=== PATIENT | female | born 1945 | race Caucasian/White ===

== ENCOUNTER 2023-12-19 12:24 | Outpatient (CLI) | payer MEDICARE, SELFPAY ==
[2023-12-19 13:26] LABS: Anion Gap 5 mmol/L (8-16); Blood Urea Nitrogen 18 mg/dL (7-17); Carbon Dioxide 29 mmol/L (22-30); Chloride 105 mmol/L (98-107); Estimated Glomerular Filt Rate > 60; Glucose 204 mg/dL (65-110); Potassium 3.8 mmol/L (3.4-5.0); Sodium 139 mmol/L (137-145)
== END 2023-12-19 12:25 | disposition home or self-care (01) ==
LOC: ANHSURGERY 12:35
PROVIDERS: Anesthesiology; PCP Internal Medicine; Visit Provider Urology
DX: E11.9 Type 2 diabetes mellitus without complications (principal); Z01.818 Encounter for other preprocedural examination
CPT/HCPCS: 36415; 80048

== ENCOUNTER 2023-12-22 00:36 | Day surgery (SDC) | payer MEDICARE, SELFPAY ==
--- NOTE | 2023-12-17 17:18 | PM.IMHP ---
H&P: HPI History of Present Illness Date/Time: 12/17/23 17:18 Chief Complaint: Urge incontinence Narrative: urge incontinence. InterStim in 2011. battery change in 2018. battery again ending service. Once a full revision to be MRI compatible Review of Systems Review of Systems: All systems reviewed & are unremarkable except as noted in HPI and below PMFSH Past Medical History Medical History Cataract fragments in both eyes following surgery Diabetes Hyperthyroidism Hypothyroidism Pancreas cancer Ulcers, marginal Surgical History Surgical History H/O: hysterectomy History of bladder surgery History of orthopedic surgery History of thyroid surgery Family History Family History Other Breast cancer Cancer Cerebrovascular accident Diabetes mellitus Heart disease Social History Social History Smoking status: Never smoker Alcohol intake: never Substance use: never Substance use type: does not use Lack of Transportation: No Lack of Food: Never True Current Housing: I Have Housing Concerned About Future Housing: Decline to Answer Difficulty Paying Gas/Electric Bills: Decline to Answer Difficulty Paying for Meds: Decline to Answer Currently Unemployed: Decline to Answer Education: High School Diploma/GED Living arrangements: alone Occupation/Education: retired Gender identity (if verbalized by the patient): Female Sexual Orientation (if Verbalized by the Patient): Straight or Heterosexual Meds Home Medications and Allergies Home Medications Medication Instructions Recorded Confirmed Type bisoprolol fumarate 5 mg tablet 2.5 mg PO DAILY 04/26/23 History clobetasol 0.05 % topical cream 1 applic topical DAILY PRN vulvar 04/26/23 04/26/23 Rx itching #60 grams hylan g-f 20 48 mg/6 mL 16 mg intra-articular ONCE 04/26/23 History intra-articular syringe (Synvisc-One) levothyroxine 112 mcg/mL oral 112 mcg PO DAILY 04/26/23 History solution metformin 500 mg tablet 500 mg PO DAILY 04/26/23 History mirabegron 50 mg tablet,extended 50 mg PO DAILY 04/26/23 History release 24 hr (Myrbetriq) simvastatin 10 mg tablet 10 mg PO DAILY 04/26/23 History Allergies Allergy/AdvReac Type Severity Reaction Status Date / Time No Known Allergies Allergy Verified 04/26/23 10:27 Exam Narrative: no acute distress normal breathing alert and oriented x3 Assessment and Plan Assessment and plan (1) Urge incontinence: Code(s): N39.41 - Urge incontinence Status: Acute Assessment and Plan: remove and replace InterStim system. Understands risks of bleeding, infection, incomplete efficacy, wound complications, incomplete device removal. Agrees to proceed
--- NOTE | 2023-12-18 12:41 | PC.NURSE ---
Report to the Outpatient Waiting Room, entrance under the green pavilion located off [facility], at time _0600 on date _12/22/23 . Planned Procedure Time: __0730 . Time changes happen often and if your time is changed the preop area will call you the afternoon before. - You and your visitor will be asked to self-screen and do not enter if you have any COVID symptoms. - A mask is optional within the hospital at this time. Patients may have clear liquids (water, carbonated beverages, clear teas, apple juice) until 3 hours prior to surgery( 4:30 AM ) with a maximum of 20 ounces. - No food from midnight until time of surgery - Infants may have breast milk until 4 hours before surgery, formula 6 hours prior to surgery. - Children will be allowed to drink immediately following surgery. If applicable, please bring a bottle or sippy cup to assist with drinking. Juice, water, soda, and popsicles are readily available. For infants on formula, please bring formula the day of surgery. Pacifiers are allowed. Take the following medications with a SIP of water the morning of surgery: _LEVOTHYROXINE,BISOPROLOL DO NOT STOP ANY OF YOUR OTHER PRESCRIPTION MEDICATIONS PRIOR TO SURGERY ?EXCEPT THE FOLLOWING Medications to discontinue per physician __ALL VITAMINS AND SUPPLEMENTS 3 DAYS PRE OP .LAST DOSE 12/18/23____PT STATES HOLD JARDIANCE 72 HOURS PRIOR TO SURGERY PER DR RODRIGUEZ. LAST DOSE 12/18/23 Please no make-up, nail bruneian, hairspray, perfume, deodorant, or body powder the day of surgery. No jewelry (including any body piercings) or valuables the day of surgery, leave them at home. Please take a shower or bath the night before, or the morning of, surgery with an antibacterial soap. Wear comfortable, loose fitting clothing. Children are encouraged to wear pajamas. - Jewelry must be removed prior to entering the operating room. Rings and piercings that are not removed may be cut off. - The hospital will not accept responsibility for valuables. - Please leave all valuables, including medications, at home the day of surgery. If you are going home after surgery, a licensed shuttle driver must drive you home. - NO public transportation without another adult if you receive anesthesia. - We recommend that an adult stay with you for 24 hours following discharge. - We also recommend that you do not drive, make important decision, drink alcoholic beverages, or take any drugs that were not prescribed by your health care provider for at least 24 hours after your discharge time. Follow any additional instructions given to you from your surgeon. If you or anyone in your household have experienced Covid symptoms in the past week, please notify your surgeon or the nurse liaison at the phone number below for possible testing. Telephone instructions given to __PATIENT and asked if any additional questions and then verbalized understanding. Patient advised to call surgeon office or pre surgery nurse liaison [phone] if any additional questions.
[2023-12-18 12:53] VITALS: BMI 25.2
--- NOTE | 2023-12-21 12:47 | WPDANESEPPF ---
Anes - Initial Pre Proc Eval Procedure: Operation Date: 12/22/23 07:30 Proposed Procedures p Removal and Insertion of Neurostimulator Implant - Charly Pruitt MD Date/Time: 12/21/23 12:47 Surgeon: Charly Pruitt MD Pre Op Diagnosis: stress incontinence Patient Data Age: 78 Gender: F Height: 1.59 m Weight: 63.5 kg Allergies Allergy/AdvReac Type Severity Reaction Status Date / Time No Known Allergies Allergy Verified 12/22/23 06:14 Home Medications Medication Instructions Recorded Confirmed Type bisoprolol fumarate 5 mg tablet 2.5 mg PO BID 04/26/23 12/18/23 History clobetasol 0.05 % topical cream 1 applic topical DAILY PRN vulvar 04/26/23 12/18/23 Rx itching #60 grams metformin 500 mg tablet 500 mg PO BID 04/26/23 12/18/23 History mirabegron 50 mg tablet,extended 50 mg PO DAILY 04/26/23 12/18/23 History release 24 hr (Myrbetriq) calcium carbonate 600 mg-vitamin 1 tablet PO DAILY 12/18/23 12/18/23 History D3 20 mcg (800 unit) chewable tablet (Caltrate 600 plus D) cholecalciferol (vitamin D3) 25 25 mcg PO DAILY 12/18/23 12/18/23 History mcg (1,000 unit) tablet empagliflozin 10 mg tablet 10 mg PO DAILY 12/18/23 12/18/23 History (Jardiance) levothyroxine 112 mcg tablet 112 mcg PO DAILY 12/18/23 12/18/23 History omega-3 fatty acids 1,000 mg PO DAILY 12/18/23 12/18/23 History omeprazole 20 mg capsule,delayed 20 mg PO DAILY 12/18/23 12/18/23 History release simvastatin 20 mg tablet 20 mg PO DAILY 12/18/23 12/18/23 History Patient hx anesthesia problems: none Family hx anesthesia problems: none Results Review: All pre-operative results and documents have been reviewed as part of the pre-operative evaluation. [facility] Past Medical History Medical History (Updated 12/21/23 @ 12:48 by Imtiaz Strong DO) Cataract fragments in both eyes following surgery Diabetes Hyperlipidemia Hypertension Hypothyroidism Pacemaker Pancreas cancer Ulcers, marginal Surgical History Surgical History H/O: hysterectomy History of bladder surgery History of orthopedic surgery History of thyroid surgery Family History Family History Other Breast cancer Cancer Cerebrovascular accident Diabetes mellitus Heart disease Social History Social History Smoking packs per day: 1 Smoking cigarettes per day: 20.0 Years smoked: 15 Smoking pack-years: 15.00 Smoking status: Former smoker Tobacco type: cigarettes Smoking end date: 10/16/94 Alcohol intake: current Drinks per week: 1 Substance use: never Substance use type: does not use Lack of Transportation: No Lack of Food: Never True Current Housing: I Have Housing Concerned About Future Housing: Decline to Answer Difficulty Paying Gas/Electric Bills: Decline to Answer Difficulty Paying for Meds: Decline to Answer Currently Unemployed: Decline to Answer Education: High School Diploma/GED Living arrangements: alone Occupation/Education: retired Gender identity (if verbalized by the patient): Female Sexual Orientation (if Verbalized by the Patient): Straight or Heterosexual Spiritual care concerns: No Anes - Eval Final PreProcedure Day of Procedure 12/21/23 12:47 Patient weight: overweight Heart: regular rate and rhythm Lungs: clear to auscultation Airway: Mallampati scale class II Neurological: alert and oriented Last oral intake: >/= 8 hours ASA classification: III Emergent: no Anesthetic plan: proceed Anesthesia type and monitoring: general GIVS and standard monitoring Results Review: All pre-operative results and documents have been reviewed as part of the pre-operative evaluation. Informed Consent: The patient's anesthetic plan and its attendant risks and benefits were discussed with the patient/
--- NOTE | ~2023-12-22 | XR_ITS ---
EXAMINATION: XR fluoroscopy no charge DATE: 12/22/2023 08:17 INDICATION: Neural stimulator removal and insertion TECHNIQUE: 3 fluoroscopic images of the pelvis were obtained during procedure performed by Dr. Freddy loaz. Radiologist was not present for the imaging or procedure. The amount of fluoroscopy time used duri ng this procedure was 1.8 minutes. COMPARISON: None FINDINGS: Lard Tub Washer image demonstrates the tip of a hemostat likely for marking projecting over a left-sided neuros timulator lead projecting over expected location of the mid left sacrum. Subsequent image demonstrate s a new InterStim lead with a lead which extends across the left S3 neural foramen. Lap sponge marker s project over the more caudal sacrum on the lateral image. IMPRESSION: 1. Fluoroscopy utilized during sacral nerve root stimulator lead replacement which is in expected pos ition projecting over the left S3 neural foramen on the final images. See procedure note for further detail. Reviewed, dictated and finalized at location A. ASSEMBLER IMPRESSION: 1. Fluoroscopy utilized during sacral nerve root stimulator lead replacement wh ich is in expected position projecting over the left S3 neural foramen on the f inal images. See procedure note for further detail.
--- NOTE | 2023-12-22 04:33 | WPDHPUPDATE1 ---
History and Physical Update Update Date/Time: 12/22/23 04:33 History and Physical has been reviewed, including an updated exam of the patient. There are NO changes in the patient's condition. Risks, benefits, and alternatives have been discussed and questions answered. Patient agrees to proceed with procedure.
[2023-12-22 06:20] LABS: Glucose Point of Care 128 mg/dl (65-105)
[2023-12-22 07:03] VITALS: BP 145/76; PULSE 85; RESP 16; TEMP 36.4; O2SAT 100
[2023-12-22 07:10] VITALS: BMI 23.8
[2023-12-22] MEDS: LACTATED RINGERS 1,000 ML 30 ML IV CONT (07:10)
[2023-12-22] MEDS: ceFAZolin 2 GM/D5W 50 ML 2 GM/50 ML BAG IVPB ×2 (07:36→07:48)
[2023-12-22] MEDS: BUPIVACAINE/EPINEPHRINE 0.5% 30 ML VIAL INFILTRATE (07:49)
[2023-12-22] MEDS: ceFAZolin SODIUM 1 GM VIAL (07:50)
--- NOTE | 2023-12-22 08:19 | P.OP_ITS ---
Procedure Note - Detailed Date of Procedure 12/22/23 Pre-op Diagnosis Sensory urge incontinence Post-op Diagnosis Same Procedure Performed Removal of sacral lead 16062 implantation of sacral lead 58300 Re-Placement of implantable pulse generator 06350 Complex neurostimulator programming impedance check 83714 Surgeon Charly Pruitt MD Coil Connector None Anesthesia MAC and Local Indications This is a patient with refractory urge urinary incontinence. She has InterStim device in place. The batteries been changed on 2 occasion. She is now in the service. She would like a full revision so she could be MRI compatible Findings See dictated Description of Procedure They were correctly identified and informed consent was obtained. There brought to the operating room. There placed in the prone position. There given appropriate perioperative antibiotics. A time-out performed. I anesthetized the skin over the pulse generator. I incised the skin. I located the pulse generator and explanted it. I then located by previously placed sacral lead under fluoroscopy. I anesthetized the skin. I dissected down to locate the lead. I removed in its entirety. I used fluoroscopy to efren out my sacral landmarks in the AP and the lateral orientation. I anesthetized the skin. I entered the S3 foramen. I monitored the needle with fluoroscopy. I entered the S3 foramen on both the patient's right and left. The old lead was on the left. I entered the right S3 foramen. 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 I could not get good responses. I then entered the S3 foramen. I stimulated the needle needle. I got appropriate Julian and toe response at a low threshold. I made a skin austin. I placed a stylet. I placed the lead introducer sheath. I then placed and d eployed to my lead. All this was done percutaneously with x-ray guidance. I got appropriate responses again at a low threshold. I did a skipping incision to take it excess lead. I tunneled the lead towards this pocket. Appropriate connections were made between the lead and the battery. It was placed in the pocket. It was programmed and impedances were checked and found to be normal. I irrigated out all wounds. I ensured hemostasis. I closed the subcutaneous tissues with 2 Vicryl. I closed the skin with 4 0 Vicryl. Glue was applied. There then awakened and transferred to the PACU in stable condition. Implants Sacral neurostimulator Estimated Blood Loss 5 Drains No Packing No Pathology None sent Condition Stable Disposition PACU
[2023-12-22 08:22] VITALS: BP 119/53; PULSE 93; RESP 14; O2SAT 97
[2023-12-22 08:29] LABS: Glucose Point of Care 161 mg/dl (65-105)
[2023-12-22 08:50] VITALS: BP 121/55; PULSE 78; RESP 16
[2023-12-22 09:20] VITALS: BP 115/52; PULSE 82; RESP 16
== END 2023-12-22 09:20 | disposition home or self-care (01) ==
PROVIDERS: PCP Internal Medicine; Visit Provider Urology
PROC: (CPT 64590; principal; 2023-12-22 07:30)
DX: Z45.42 Encounter for adjustment and management of neurostimulator (principal); N39.41 Urge incontinence; E11.9 Type 2 diabetes mellitus without complications; E78.5 Hyperlipidemia, unspecified; I10 Essential (primary) hypertension; E03.9 Hypothyroidism, unspecified; Z95.0 Presence of cardiac pacemaker; Z85.07 Personal history of malignant neoplasm of pancreas; Z79.84 Long term (current) use of oral hypoglycemic drugs; Z87.891 Personal history of nicotine dependence
CPT/HCPCS: 64590; 64561; 36415; 80048; 82948; 99199; C1767; C1778; C1787; J0690; J1885; J2250; J2405; J2704; J3010; J7120

== ENCOUNTER 2025-04-11 00:34 | Day surgery (SDC) | payer MEDICARE, SELFPAY ==
[2025-04-01 13:31] VITALS: BMI 25.6
--- NOTE | 2025-04-01 13:44 | PC.NURSE ---
Report to the Outpatient Waiting Room, entrance under the green pavilion located off [facility], at time _0615am on date _04/11/25 . Planned Procedure Time: _0815am .? Time changes happen often and if your time is changed the preop area will call you the afternoon before. - You and your visitor will be asked to self-screen and do not enter if you have any COVID symptoms. Please call surgeon if you need to reschedule. - A mask is optional within the hospital at this time. Patients may have clear liquids (water, carbonated beverages, clear teas, apple juice) until 3 hours prior to surgery with a maximum of 20 ounces. - No food from midnight until time of surgery and no smoking, or chewing tobacco (or any form of nicotine). No chewing gum, candy or mints. ( 05:15am) Take only the following medications with a SIP of water on the morning of surgery: Bisprolol and Levothyroxine DO NOT STOP ANY OF YOUR OTHER PRESCRIPTION MEDICATIONS PRIOR TO SURGERY EXCEPT THE FOLLOWING Hold all vitamins, supplements, NSAIDS and ASA for [address] Pruitt - date to take last dose is 04/01/25 Please no make-up, nail croatian, hairspray, perfume, deodorant, or body powder the day of surgery.? No jewelry (including any body piercings) or valuables the day of surgery, leave them at home.? Please take a shower or bath the night before, or the morning of, surgery with an antibacterial soap.? Wear comfortable, loose fitting clothing.? - Jewelry must be removed prior to entering the operating room.? Rings and piercings that are not removed may be cut off. - The hospital will not accept responsibility for valuables.? - Please leave all valuables, including medications, at home the day of surgery. If you are going home after surgery, a licensed driver sales must drive you home.? - NO public transportation without another adult if you receive anesthesia. - We recommend that an adult stay with you for 24 hours following discharge. - We also recommend that you do not drive, make important decision, drink alcoholic beverages, or take any drugs that were not prescribed by your health care provider for at least 24 hours after your discharge time. Follow any additional instructions given to you from your surgeon. Telephone instructions given to _Patient and asked if any additional questions and then verbalized understanding. Patient advised to call surgeon office or pre surgery nurse liaison [phone] if any additional questions.
--- NOTE | 2025-04-11 04:51 | PM.IMHP ---
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 Has a InterStim Review of Systems Review of Systems: All systems reviewed & are unremarkable except as noted in HPI and below PMFSH Past Medical History Medical History GERD (gastroesophageal reflux disease) Hyperlipidemia Hypertension Pacemaker Diabetes Pancreas cancer Hypothyroidism Cataract fragments in both eyes following surgery Ulcers, marginal Surgical History Surgical History History of bladder surgery H/O: hysterectomy History of orthopedic surgery History of thyroid surgery Family History Family History Other Breast cancer Cancer Cerebrovascular accident Diabetes mellitus Heart disease Social History Social History Smoking packs per day: 1 Smoking cigarettes per day: 20.0 Years smoked: 15 Smoking pack-years: 15.00 Smoking status: Former smoker Tobacco type: cigarettes Smoking end date: 10/16/94 Alcohol intake: never Drinks per week: 1 Substance use: never Substance use type: does not use Do You Feel Safe in your Home?: Yes Lack of Transportation: No Lack of Food: Never True Current Housing: I Have Housing Concerned About Future Housing: Decline to Answer Difficulty Paying Gas/Electric Bills: Decline to Answer Difficulty Paying for Meds: Decline to Answer Currently Unemployed: Decline to Answer Education: High School Diploma/GED Living arrangements: alone Occupation/Education: retired Gender identity (if verbalized by the patient): Female Sexual Orientation (if Verbalized by the Patient): Straight or Heterosexual Spiritual care concerns: No Meds Home Medications and Allergies Home Medications ?Medication ?Instructions ?Recorded ?Confirmed ?Type bisoprolol fumarate 5 mg tablet 2.5 mg PO BID 04/26/23 04/01/25 History metformin 500 mg tablet 500 mg PO BID 04/26/23 04/01/25 History calcium 600 mg (as carbonate)-vit 1 tablet PO DAILY 12/18/23 04/01/25 History D3 20 mcg (800 unit) chewable tablet (Caltrate plus D) cholecalciferol (vitamin D3) 25 25 mcg PO DAILY 12/18/23 04/01/25 History mcg (1,000 unit) tablet levothyroxine 112 mcg tablet 112 mcg PO DAILY 12/18/23 04/01/25 History omega-3 fatty acids 1,000 mg PO DAILY 12/18/23 04/01/25 History omeprazole 20 mg capsule,delayed 20 mg PO DAILY 12/18/23 04/01/25 History release simvastatin 20 mg tablet 20 mg PO DAILY 12/18/23 04/01/25 History clobetasol 0.05 % topical cream 1 applic topical DAILY PRN vulvar 05/16/24 04/01/25 Rx itching #60 grams nystatin 100,000 unit/gram topical 1 applic topical DAILY 07/23/24 04/01/25 History cream empagliflozin 10 mg tablet 10 mg PO DAILY 04/01/25 04/01/25 History (Jardiance) estradiol 0.01% (0.1 mg/gram) 1 appful vaginal WEEKLY 04/01/25 04/01/25 History vaginal cream Allergies Allergy/AdvReac Type Severity Reaction Status Date / Time No Known Allergies Allergy Verified 04/01/25 13:25 Exam Narrative: fixed urethra Assessment and Plan Assessment and plan (1) Intrinsic sphincter deficiency (ISD): Code(s): N36.42 - Intrinsic sphincter deficiency (ISD) Status: Acute Assessment and Plan: cystosocopy/bulking agent
--- NOTE | 2025-04-11 04:52 | WPDHPUPDATE1 ---
History and Physical Update Update Date/Time: 04/11/25 04:52 History and Physical has been reviewed, including an updated exam of the patient. There are NO changes in the patient's condition. Risks, benefits, and alternatives have been discussed and questions answered. Patient agrees to proceed with procedure.
[2025-04-11 06:48] LABS: Glucose Point of Care 123 mg/dl (65-105)
[2025-04-11 07:00] VITALS: BP 139/78; PULSE 93; RESP 14; TEMP 36.9; O2SAT 98
[2025-04-11] MEDS: LACTATED RINGERS 1,000 ML 30 ML IV CONT (07:00)
--- NOTE | 2025-04-11 07:10 | P.PNAN_ITS ---
Anes - Initial Pre Proc Eval Procedure: Operation Date: 04/11/25 08:15 Proposed Procedures p Cystoscopy with Bulking Agent - Charly Pruitt MD Date/Time: 04/11/25 07:10 Surgeon: Charly Pruitt MD Pre Op Diagnosis: Stress Incont Patient Data Age: 79 Gender: F Height: 1.57 m Weight: 63.5 kg Allergies Allergy/AdvReac Type Severity Reaction Status Date / Time No Known Allergies Allergy Verified 04/01/25 13:25 Home Medications ?Medication ?Instructions ?Recorded ?Confirmed ?Type bisoprolol fumarate 5 mg tablet 2.5 mg PO BID 04/26/23 04/01/25 History metformin 500 mg tablet 500 mg PO BID 04/26/23 04/01/25 History calcium 600 mg (as carbonate)-vit 1 tablet PO DAILY 12/18/23 04/01/25 History D3 20 mcg (800 unit) chewable tablet (Caltrate plus D) cholecalciferol (vitamin D3) 25 25 mcg PO DAILY 12/18/23 04/01/25 History mcg (1,000 unit) tablet levothyroxine 112 mcg tablet 112 mcg PO DAILY 12/18/23 04/01/25 History omega-3 fatty acids 1,000 mg PO DAILY 12/18/23 04/01/25 History omeprazole 20 mg capsule,delayed 20 mg PO DAILY 12/18/23 04/01/25 History release simvastatin 20 mg tablet 20 mg PO DAILY 12/18/23 04/01/25 History clobetasol 0.05 % topical cream 1 applic topical DAILY PRN vulvar 05/16/24 04/01/25 Rx itching #60 grams nystatin 100,000 unit/gram topical 1 applic topical DAILY 07/23/24 04/01/25 History cream empagliflozin 10 mg tablet 10 mg PO DAILY 04/01/25 04/01/25 History (Jardiance) estradiol 0.01% (0.1 mg/gram) 1 appful vaginal WEEKLY 04/01/25 04/01/25 History vaginal cream Laboratory Tests 04/11/25 06:43 POC Capillary Glucose 123 H mg/dl (65-105) Patient hx anesthesia problems: none Family hx anesthesia problems: none Results Review: All pre-operative results and documents have been reviewed as part of the pre- operative evaluation. PMFSH Past Medical History Medical History GERD (gastroesophageal reflux disease) Hyperlipidemia Hypertension Pacemaker Diabetes Pancreas cancer Hypothyroidism Cataract fragments in both eyes following surgery Ulcers, marginal Surgical History Surgical History History of bladder surgery H/O: hysterectomy History of orthopedic surgery History of thyroid surgery Family History Family History Other Breast cancer Cancer Cerebrovascular accident Diabetes mellitus Heart disease Social History Social History Smoking packs per day: 1 Smoking cigarettes per day: 20.0 Years smoked: 15 Smoking pack-years: 15.00 Smoking status: Former smoker Tobacco type: cigarettes Smoking end date: 10/16/94 Alcohol intake: never Drinks per week: 1 Substance use: never Substance use type: does not use Do You Feel Safe in your Home?: Yes Lack of Transportation: No Lack of Food: Never True Current Housing: I Have Housing Concerned About Future Housing: Decline to Answer Difficulty Paying Gas/Electric Bills: Decline to Answer Difficulty Paying for Meds: Decline to Answer Currently Unemployed: Decline to Answer Education: High School Diploma/GED Living arrangements: alone Occupation/Education: retired Gender identity (if verbalized by the patient): Female Sexual Orientation (if Verbalized by the Patient): Straight or Heterosexual Spiritual care concerns: No Anes - Eval Final PreProcedure Day of Procedure 04/11/25 07:10 Patient weight: overweight Heart: regular rate and rhythm Lungs: clear to auscultation Airway: Mallampati scale class II Neurological: alert and oriented Last oral intake: >/= 8 hours ASA classification: III Emergent: no Anesthetic plan: proceed Anesthesia type and monitoring: general GIVS and standard monitoring Results Review: All pre-operative results and documents have been reviewed as part of the pre- operative evaluation. Informed Consent: The patient's anesthetic plan and its attendant risks and benefits were discussed with the patient/family/POA. Questions were solicited and answers provided to the satisfaction of the patient/family/POA.
[2025-04-11] MEDS: ceFAZolin 2 GM/D5W 50 ML 2 GM/50 ML BAG IVPB (08:15)
[2025-04-11] MEDS: LIDOCAINE 2% GEL UROJET 10 ML PKG MUCOUS MEM (08:24)
--- NOTE | 2025-04-11 08:35 | W.PM.PROC2 ---
Procedure Note - Detailed Date of Procedure 04/11/25 Pre-op Diagnosis Intrinsic sphincter deficiency Post-op Diagnosis Same Procedure Performed Cystoscopy with suburethral injection of implant material Surgeon Charly Pruitt MD Anesthesia MAC and Local (Uro jet) Indications A 1 mixed incontinence. She is here today for treatment of intrinsic sphincter deficiency. She understands risks of bleeding, infection, damage to the urinary tract, lack of efficacy, urinary retention requiring catheterization, need for repeat procedures. She agrees to proceed Findings Open urethra consistent with intrinsic sphincter deficiency Description of Procedure She was correctly identified. Informed consent obtained. From the operating room. She was given monitored anesthesia care. She was placed in dorsal lithotomy position. She was prepped draped sterile fashion. Time-out performed. Uro jet was applied. 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 A Ray-Jean was placed in the vagina to elevate the bladder. This was removed into the case. On cystoscopy she had normal appearing bladder without significant abnormalities. There was no tumors or stones. Ureteral orifices were normal. Urethra open consistent with intrinsic sphincter deficiency. I injected bulking agent circumferentially 2 cm distal to bladder neck. I used both syringes total. I performed several pillows which completely coapted the urethra. Her bladder was left partially full. She was awakened transferred to PACU in stable condition. Implants Urethral bulking agent Estimated Blood Loss 0 Complications No immediate complications Condition Stable Disposition PACU
[2025-04-11 08:38] VITALS: BP 127/81; PULSE 93; RESP 14; O2SAT 99
[2025-04-11 09:00] VITALS: BP 127/81; PULSE 93; RESP 20
[2025-04-11 09:30] VITALS: BP 133/83; PULSE 90; RESP 20
== END 2025-04-11 09:35 | disposition home or self-care (01) ==
PROVIDERS: PCP Internal Medicine; Visit Provider Urology
PROC: 3E0K8GC Introduction of Other Therapeutic Substance into Genitourinary Tract, Via Natural or Artificial Opening Endoscopic (ICD-10-PCS; CPT 51715; principal; 2025-04-11 08:15)
DX: N36.42 Intrinsic sphincter deficiency (ISD) (principal); E78.5 Hyperlipidemia, unspecified; I10 Essential (primary) hypertension; K21.9 Gastro-esophageal reflux disease without esophagitis; E11.9 Type 2 diabetes mellitus without complications; E03.9 Hypothyroidism, unspecified; Z79.84 Long term (current) use of oral hypoglycemic drugs; Z95.0 Presence of cardiac pacemaker; Z98.890 Other specified postprocedural states; Z87.891 Personal history of nicotine dependence; Z85.07 Personal history of malignant neoplasm of pancreas; Z80.3 Family history of malignant neoplasm of breast; Z82.49 Family history of ischemic heart disease and other diseases of the circulatory system
CPT/HCPCS: 51715; 82948; J0690; J2405; J2704; J7120; L8606